=== PATIENT | female | born 1950 | race Caucasian/White ===

== ENCOUNTER → 2017-03-03 | Outpatient (CLI) | payer MEDICARE, OTHER ==
[~2017-03-03] MED LIST: ACID1TAB PO; CIPR500T4 PO; DOXY100T2 PO; METR500T PO; ONDA4TAB11 PO; OSEL75CA15 PO
--- NOTE | 2017-03-04 12:48 | Diagnostic Imaging Report ---
Bilateral screening mammogram 2D views with tomosynthesis. The current study was also evaluated with a Computer Aided Detection (CAD) system. INDICATION: Screening. No current complaints stated on the questionnaire. COMPARISON: None. This is a baseline study. FINDINGS: The breasts are composed of extremely dense parenchyma which may decrease mammographic sensitivity. The gladis images in the right breast are suggestive of a 5-mm focal asymmetry seen in the lower aspect of the right breast. The left breast demonstrates no definite focal lesion. IMPRESSION: Dense breasts. Focal compression views to evaluate lower right breast focal asymmetry and bilateral ultrasound evaluation is recommended. ACR BI-RADS Category 0: Incomplete. (Needs additional imaging evaluation). Result letter will be mailed to the patient. Note: At least 10% of breast cancer is not imaged by mammography. Dictated by: Dictated on workstation # [id number]
== END ==
LOC: RAD 11:07
PROVIDERS: ATTEND Nurse Practitioner Family
DX: Z12.31 Encounter for screening mammogram for malignant neoplasm of breast (principal)
CPT/HCPCS: 77067

== ENCOUNTER → 2017-03-18 | Outpatient (CLI) | payer MEDICARE, OTHER ==
--- NOTE | 2017-03-18 11:00 | Diagnostic Imaging Report ---
EXAM: Bilateral breast ultrasound. INDICATION: Dense breasts. Asymmetry of the inferior aspect of the right breast. FINDINGS: The four-quadrant central retroareolar regions of each breast were scanned. The left breast appears unremarkable. In the right breast, there is a relatively superficial 6 mm intramammary lymph node with a preserved fatty hilum. This is located at 6 o'clock zone 3 cm from the nipple. IMPRESSION: The inferior asymmetry in the right breast corresponds with a 6 mm intramammary lymph node in the right breast. Annual screening mammogram is recommended. BI-RADS 2. ACR BI-RADS Category 2: Benign findings. Result letter will be mailed to the patient. Note: At least 10% of breast cancer is not imaged by mammography. Dictated by: Dictated on workstation # [id number]
--- NOTE | 2017-03-18 11:17 | Diagnostic Imaging Report ---
Focal compression views with tomography performed of the right breast diagnostic mammogram. INDICATION: Focal asymmetry in the inferior aspect of the right breast. FINDINGS: There is persistent lobulated asymmetry measuring 7 mm in the inferior aspect of the right breast. It has circumscribed margins. It is probably within the subcutaneous tissues or adjacent superficial breast tissue. IMPRESSION: Persistent circumscribed focal asymmetry measuring 7 mm in the inferior aspect of the right breast. Ultrasound evaluation pending. ACR BI-RADS Category 0: Incomplete. (Needs additional imaging evaluation). Result letter will be mailed to the patient. Note: At least 10% of breast cancer is not imaged by mammography. Dictated by: Dictated on workstation # [id number]
== END ==
LOC: RAD 07:58
PROVIDERS: ATTEND Nurse Practitioner Family
DX: N64.89 Other specified disorders of breast (principal)

== ENCOUNTER → 2018-03-07 | Outpatient (CLI) | payer MEDICARE, OTHER ==
--- NOTE | 2018-03-07 13:02 | Diagnostic Imaging Report ---
INDICATION: Routine screening. COMPARISON: 03/03/2017. TECHNIQUE: 2D and 3D bilateral screening mammography was performed with CAD. FINDINGS: Both breasts remain heterogeneously dense, limiting the sensitivity of mammography. No mass or malignant appearing microcalcifications are seen. The axillae are unremarkable. IMPRESSION: No mammographic features suspicious for malignancy are identified. ACR BI-RADS Category 1: Negative. Result letter will be mailed to the patient. Note: At least 10% of breast cancer is not imaged by mammography. Dictated by: Dictated on workstation # [id number]
== END ==
LOC: RAD 08:48
PROVIDERS: ATTEND Nurse Practitioner Family
DX: Z12.31 Encounter for screening mammogram for malignant neoplasm of breast (principal)
CPT/HCPCS: 77067

== ENCOUNTER → 2019-03-08 | Outpatient (CLI) | payer MEDICARE, OTHER ==
--- NOTE | 2019-03-08 12:31 | Diagnostic Imaging Report ---
INDICATION: Routine screening. COMPARISON: 03/07/2018 and 03/03/2017. TECHNIQUE: 2D and 3D bilateral screening mammography was performed with CAD. FINDINGS: Both breasts are heterogeneously dense, limiting the sensitivity of mammography. No mass or malignant appearing microcalcifications are seen. The axillae are unremarkable. IMPRESSION: No mammographic features suspicious for malignancy are identified. ACR BI-RADS Category 1: Negative. Result letter will be mailed to the patient. Note: At least 10% of breast cancer is not imaged by mammography. Dictated by: Dictated on workstation # [id number]
== END ==
LOC: RAD 09:44
PROVIDERS: ATTEND Nurse Practitioner Family
DX: Z12.31 Encounter for screening mammogram for malignant neoplasm of breast (principal)
CPT/HCPCS: 77067

== ENCOUNTER 2022-01-09 15:28 | Emergency (ER) | payer MEDICARE, OTHER ==
[~2022-01-09] VITALS: Ht 148 cm; Wt 45.4 kg
[~2022-01-09 15:28] MED LIST changes: -CIPR500T4 PO; +CIPR500T5 PO
[2022-01-09 15:53] LABS: BASOPHILS % (AUTO) 0 % (0-10); EOSINOPHILS # (AUTO) 0.1 10^3/uL (0.0-0.3); EOSINOPHILS % (AUTO) 2 % (0-10); HEMATOCRIT 35 % (35-52); HEMOGLOBIN 11.8 g/dL (11.5-16.0); LYMPHOCYTES # (AUTO) 2.4 X 10^3 (1.0-4.0); LYMPHOCYTES % (AUTO) 40 % (12-44); MEAN CORPUSCULAR HEMOGLOBIN 32 pg (25-34); MEAN CORPUSCULAR HGB CONC 33 g/dL (32-36); MEAN CORPUSCULAR VOLUME 96 fL (80-99); MEAN PLATELET VOLUME 9.4 fL (9.0-12.2); MONOCYTES # (AUTO) 0.7 X 10^3 (0.0-1.0); MONOCYTES % (AUTO) 11 % (0-12); NEUTROPHILS # (AUTO) 2.7 X 10^3 (1.8-7.8); NEUTROPHILS % (AUTO) 46 % (42-75); PLATELET COUNT 280 10^3/uL (130-400); WHITE BLOOD COUNT 5.8 10^3/uL (4.3-11.0)
[2022-01-09 16:01] LABS: POTASSIUM 3.7 MMOL/L (3.6-5.0)
[2022-01-09 16:02] LABS: CALCIUM 8.6 MG/DL (8.5-10.1)
[2022-01-09 16:06] LABS: CREATININE SERUM 0.79 MG/DL (0.60-1.30)
--- NOTE | 2022-01-09 16:21 | Diagnostic Imaging Report ---
INDICATION: Fall with dizziness and nausea. TECHNIQUE: Multiple contiguous axial images were obtained through the brain without the use of intravenous contrast. Auto Exposure Controls were utilized during the CT exam to meet ALARA standards for radiation dose reduction. There is no previous study for comparison. FINDINGS: There were no extra-axial fluid collections. No intracranial hemorrhage. No intracranial mass or mass effect. No midline shift. The ventricles are normal in size and position. There were no focal parenchymal abnormalities in the brain. Calvarial windows are unremarkable. There is no calvarial fracture. There is partial opacification of the ethmoid air cells on both sides. There is some soft tissue swelling in the scalp posteriorly. IMPRESSION: No acute intracranial abnormality or calvarial fracture. Incidental partial opacification of the ethmoid sinuses. There is some scalp swelling posteriorly. Dictated by: Dictated on workstation # [id number]
--- NOTE | 2022-01-09 16:29 | ED Fall/Injury ---
General Chief Complaint: Trauma-Non Activation Stated Complaint: FALL Nursing Triage Note: PT TO RM 7 VIA [facility] W REPORTS OF FALL HARBOR TUG CAPTAIN WHILE WALKING OUTSIDE, C-COLLAR IN PLACE. NO LOC, PT REPORTS SHE HAS BEEN EXPERIENCING NAUSEA AND DIZZINESS SX JULY AND DR. BERGERON HAS BEEN MONITORING IT. PT STATES THIS WAS HER NORMAL BOUT OF NAUSEA AND DIZZINESS THAT CAUSED THE FALL. EMS INITIATED 18G L HAND SL EN ROUTE TO ED, ADMIN 4MG ZOFRAN TO RESOLVE PT NAUSEA. PT DENIES PAIN AT THIS TIME, C/O MILD DIZZINESS. PT A&OX4. Source: patient, EMS Exam Limitations: no limitations History of Present Illness Date Seen by Provider: January 09, 2022 Time Seen by Provider: 15:35 Initial Comments is a delightful 71-year-old woman who presents to the emergency room via EMS after having a fall while walking outside just prior to arrival. She reports the fall was caused by a sudden onset of vertigo. She has a long history of chronic recurrent episodes of vertigo. She often has associated nausea and vomiting. She did strike her right posterior scalp but denies any loss of consciousness. She arrives in c-collar which was cleared during assessment due to no pain with palpation or range of motion. She also has an abrasion on her left elbow but no serious injury there. She denies any use of any blood thinning medications. Location Injury Occurred: [place] Allergies and Home Medications Allergies Coded Allergies: No Known Drug Allergies (Unverified , 01/24/17) Patient Home Medication List Home Medication List Reviewed: Yes Doxycycline Hyclate (Doxycycline Hyclate) 100 Mg Tablet, 100 MG PO BID@ Prescribed by: RICHARD BERGERON on 01/26/17927 L. Acidophilus/Bulgaricus (Floranex Tablet) 1 Each Tablet, 1 TAB.CHEW PO AC Prescribed by: RICHARD BERGERON on 01/26/17927 Metronidazole (Flagyl) 500 Mg Tablet, 500 MG PO TID Prescribed by: RICHARD BERGERON on 01/26/17927 Ondansetron (Ondansetron Odt) 4 Mg Tab.rapdis, 4 MG PO BID PRN for NAUSEA/VOMITING-1ST LINE, (Reported) Entered as Reported by: BEATRIZ TREJO on 01/25/17 1222 Review of Systems Review of Systems Constitutional: no symptoms reported Eyes: No Symptoms Reported Ears, Nose, Mouth, Throat: no symptoms reported Respiratory: no symptoms reported Cardiovascular: no symptoms reported Gastrointestinal: see HPI Genitourinary: no symptoms reported : No Musculoskeletal: no symptoms reported Skin: see HPI Psychiatric/Neurological: See HPI Past Mrnzxpz-Lntmvn-Isfuzc Hx Patient Social History Tobacco Use?: No Use of E-Cig and/or Vaping dev: No Substance use?: No Alcohol Use?: No Immunizations Up To Date Influenza Vaccine Up-to-Date: Yes; Up-to-Date First/Initial COVID19 Vaccinat: 2020 Second COVID19 Vaccination Deon: 2020 Third COVID19 Vaccination Date: 2020 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: [employer] Seasonal Allergies Seasonal Allergies: No Past Medical History Surgeries: Yes Respiratory: No Currently Using CPAP: No Cardiac: No Neurological: Yes Vertigo Reproductive Disorders: No Female Reproductive Disorders: Denies Sexually Transmitted Disease: No HIV/AIDS: No Genitourinary: No Gastrointestinal: No Musculoskeletal: No Endocrine: No HEENT: No Loss of Vision: Denies Hearing Impairment: Denies Cancer: No Psychosocial: No Integumentary: No Blood Disorders: No Adverse Reaction/Blood Tranf: No Family Medical History FH: CABG (coronary artery bypass surgery) G8 SISTER, Onset:60 years & older Heart Disease, CAD Over 55 Years Old Physical Exam Vital Signs Vital Signs - First Documented 01/09/22 15:30 Temp 36.6 Pulse 67 Resp 20 B/P (MAP) 130/77 (94) Pulse Ox 97 O2 Delivery Room Air Capillary Refill : Less Than 3 Seconds Height, Weight, BMI Height: 5'0.00" Weight: 98lbs. 5.0oz. 44.120267xo; 20.00 BMI Method:Stated General Appearance: WD/WN, no apparent distress, thin HEENT: PERRL/EOMI, other (Mild swelling and tenderness at contusion on the po sterior scalp) Neck: non-tender, full range of motion, supple, normal inspection Cardiovascular: regular rate, rhythm, no edema, no murmur Respiratory: lungs clear, normal breath sounds, no respiratory distress Gastrointestinal: non tender, soft Extremities: normal range of motion, non-tender, no pedal edema, other (Minor abrasion to the left lateral elbow) Neurologic/Psychiatric: roll changer II-XII nml as tested, no motor/sensory deficits, alert, normal mood/affect, oriented x 3 Skin: normal color, warm/dry [place] Coma Score Best Eye Response: (4) Open Spontaneously Best Verbal Response: (5) Oriented Best Motor Response: (6) Obeys Commands Marlon Total: 15 Progress/Results/Core Measures Results/Orders Lab Results Laboratory Tests Test 01/09/22 15:35 Range/Units White Blood Count 5.8 4.3-11.0 10^3/uL Red Blood Count 3.68 L 3.80-5.11 10^6/uL Hemoglobin 11.8 11.5-16.0 g/dL Hematocrit 35 35-52 % Mean Corpuscular Volume 96 80-99 fL Mean Corpuscular Hemoglobin 32 25-34 pg Mean Corpuscular Hemoglobin Concent 33 32-36 g/dL Red Cell Distribution Width 13.2 10.0-14.5 % Platelet Count 280 130-400 10^3/uL Mean Platelet Volume 9.4 9.0-12.2 fL Immature Granulocyte % (Auto) 0 % Neutrophils (%) (Auto) 46 42-75 % Lymphocytes (%) (Auto) 40 12-44 % Monocytes (%) (Auto) 11 0-12 % Eosinophils (%) (Auto) 2 0-10 % Basophils (%) (Auto) 0 0-10 % Neutrophils # (Auto) 2.7 1.8-7.8 X 10^3 Lymphocytes # (Auto) 2.4 1.0-4.0 X 10^3 Monocytes # (Auto) 0.7 0.0-1.0 X 10^3 Eosinophils # (Auto) 0.1 0.0-0.3 10^3/uL Basophils # (Auto) 0.0 0.0-0.1 10^3/uL Immature Granulocyte # (Auto) 0.0 0.0-0.1 10^3/uL Sodium Level 139 135-145 MMOL/L Potassium Level 3.7 3.6-5.0 MMOL/L Chloride Level 104 98-107 MMOL/L Carbon Dioxide Level 24 21-32 MMOL/L Anion Gap 11 5-14 MMOL/L Blood Urea Nitrogen 12 7-18 MG/DL Creatinine 0.79 0.60-1.30 MG/DL Estimat Glomerular Filtration Rate 80 BUN/Creatinine Ratio 15 Glucose Level 115 H 70-105 MG/DL Calcium Level 8.6 8.5-10.1 MG/DL My Orders Orders - RAMÓN GARCES MD Ct Head Wo (01/09/22 15:42) Basic Metabolic Panel (01/09/22 15:42) Cbc With Automated Diff (01/09/22 15:42) Ed Iv/Invasive Line Start (01/09/22 15:42) Vital Signs/I&O 01/09/22 01/09/22 15:30 16:50 Temp 36.6 Pulse 67 66 Resp 20 16 B/P (MAP) 130/77 (94) 112/75 Pulse Ox 97 97 O2 Delivery Room Air Blood Pressure Mean: 94 Progress Progress Note : Progress Note Left elbow wound was treated with antibiotic ointment and bandage. CT of the head was unremarkable. Vertigo had dissipated and patient needed no further treatment while in the ER. Diagnostic Imaging Diagonstic Imaging: CT Plain Films/CT/US/NM/MRI: head Comments NAME: JESSICA BLACKMON [facility] REC#: [id number] PT STATUS: DEP ER : [id number] PHYSICIAN: RAMÓN GARCES MD ADMIT DATE: 01/09/22/ER Signed Date of Exam:01/09/22 CT HEAD WO INDICATION: Fall with dizziness and nausea. TECHNIQUE: Multiple contiguous axial images were obtained through the brain without the use of intravenous contrast. Auto Exposure Controls were utilized during the CT exam to meet ALARA standards for radiation dose reduction. There is no previous study for comparison. FINDINGS: There were no extra-axial fluid collections. No intracranial hemorrhage. No intracranial mass or mass effect. No midline shift. The ventricles are normal in size and position. There were no focal parenchymal abnormalities in the brain. Calvarial windows are unremarkable. There is no calvarial fracture. There is partial opacification of the ethmoid air cells on both sides. There is some soft tissue swelling in the scalp posteriorly. IMPRESSION: No acute intracranial abnormality or calvarial fracture. Incidental partial opacification of the ethmoid sinuses. There is some scalp swelling posteriorly. Dictated by: Dictated on workstation # [id number] Dict: 01/09/22 1616 Trans: 01/09/22 [id number] Interpreted by: CELESTINO ANDERS MD Electronically signed by: CELESTINO ANDERS MD 01/09/22 4325 Departure Impression Primary Impression: Fall on same level Qualified Codes: W18.30XA - Fall on same level, unspecified, initial encounter Additional Impressions: Scalp contusion Qualified Codes: S00.03XA - Contusion of scalp, initial encounter Vertigo Disposition: 01 HOME, SELF-CARE Condition: Stable Departure-Patient Inst. Decision time for Depature: 16:28 Referrals: RICHARD BERGERON MD (PCP/Family) Primary Care Physician Patient Instructions: Minor Head Injury, Adult ED, Vertigo (a Type of Dizziness) Add. Discharge Instructions: Drink plenty of clear liquids to stay well-hydrated and get plenty of rest today. If you develop any worsening neurologic symptoms such as confusion, changes in vision, numbness or weakness of a body part, difficulty with speaking, nausea or vomiting, etc. please return to the emergency room. You may use Tylenol and/or ibuprofen for pain. You may use meclizine [id number] for vertigo if desired. Return to care if you have any other problems or concerns. Call with questions or concerns. All discharge instructions reviewed with patient and/or family. Voiced understanding. Copy Copies To 1: RICHARD BERGERON MD, JOSHUA T MD January 09, 2022 16:29
[2022-01-09 16:50] VITALS: BP 112/75
== END 2022-01-09 16:52 | disposition home or self-care (01) ==
LOC: EDUNIT# 15:28 → ER 15:29
DX: S00.03XA Contusion of scalp, initial encounter (principal); S50.312A Abrasion of left elbow, initial encounter; W18.30XA Fall on same level, unspecified, initial encounter
CPT/HCPCS: 36415; 70450; 80048; 85025